=== PATIENT | male | born 1970 | race Caucasian/White ===

== ENCOUNTER → 2017-01-18 | Outpatient (CLI) | payer OTHER | END | disposition home or self-care (01) | LOC: C.RDSM 09:00 | PROVIDERS: ATTEND Orthopaedic Surgery | DX: R52 Pain, unspecified (principal) ==

== ENCOUNTER → 2017-01-22 | Outpatient (CLI) | payer OTHER ==
--- NOTE | 2017-01-22 12:54 | DIAGNOSTIC IMAGING REPORT ---
R LOWER EXT JOINT WITHOUT CLINICAL HISTORY: 46 years-old Male with R KNEE PAIN. Acute right knee pain and swelling without known injury COMPARISON: Knee radiographs 01/18/2017 TECHNIQUE: Multiplanar, multisequence MRI of the right knee was performed without intravenous contrast. FINDINGS: MENISCI: There is minimal blunting of the free edge medial meniscus as seen on image 14 series 8. Otherwise, the medial and lateral meniscus are normal in position, morphology and signal. CRUCIATE LIGAMENTS: The anterior and posterior cruciate ligaments are normal in signal, morphology and course. COLLATERAL LIGAMENTS: The popliteus tendon, biceps femoris tendon, fibular collateral ligament and iliotibial band are intact. The superficial and deep components of the medial collateral ligament are intact. EXTENSOR MECHANISM: The quadriceps and patellar tendons are intact.The medial and lateral patellar retinacula are intact. KNEE JOINT: Small joint effusion. No high-grade chondral loss or intra-articular body identified. BONE MARROW: The bone marrow signal is age appropriate. No fracture, marrow edema, or marrow replacing process. SOFT TISSUES: There is a mild amount of edema and fluid within the superficial pretibial tissues. IMPRESSION: 1. Minimal blunting of the free edge medial meniscus as above is noted without discrete meniscal tear or acute ligamentous injury. 2. No fracture or focal bone marrow edema. 3. No high-grade chondral loss or osteochondral defect. 4. Mild amount of edema and fluid within the superficial pretibial tissues may reflect developing bursitis. The above report was generated using voice recognition software. It may contain grammatical, syntax or spelling errors. Electronically signed by: Robin Lee M.D. 01/22/2017 12:52 PM Dictated Date/Time: 01/22/2017 12:41 PM
== END | disposition home or self-care (01) ==
LOC: C.MRI 11:26
PROVIDERS: ATTEND Orthopaedic Surgery
DX: M25.561 Pain in right knee (principal); R93.7 Abnormal findings on diagnostic imaging of other parts of musculoskeletal system; R60.0 Localized edema